=== PATIENT | female | born 2000 | race Caucasian/White ===

== ENCOUNTER 2019-05-08 10:55 | Outpatient (CLI) | payer MEDICAID | END 2019-05-08 20:10 | disposition home or self-care (01) | LOC: MUS 10:55 | PROVIDERS: ATTEND Obstetrics & Gynecology | DX: Z34.92 Encounter for supervision of normal pregnancy, unspecified, second trimester (principal); Z3A.25 25 weeks gestation of pregnancy | CPT/HCPCS: 76805; 90935 ==

== ENCOUNTER 2019-08-05 13:44 | Inpatient (IN) | payer MEDICAID ==
[~2019-08-05] VITALS: Ht 169 cm; Wt 95.3 kg
[2019-08-05] MEDS ORDERED: PROMETHAZINE 25 MG/ML VIAL IVP PRN (14:20)
[2019-08-05] MEDS ORDERED: METHYLERGONOVINE 0.2 MG/ML AMP IM PRN (14:20)
[2019-08-05] MEDS ORDERED: CARBOPROST 250 MCG/ML AMP IM PRN (14:20)
[2019-08-05] MEDS ORDERED: NALBUPHINE 10 MG/ML AMP IVP PRN (14:20)
[2019-08-05] MEDS ORDERED: MISOPROSTOL 25 MCG TAB ONE ×3 (15:27→20:08)
[2019-08-05 15:39] LABS: BASOPHILS % (AUTO) 0.2 % (0.0-2.0); EOSINOPHILS % (AUTO) 0.4 % (0.0-4.0); HEMATOCRIT 35.5 % (36-48); HEMOGLOBIN 11.8 g/dL (12.0-16.0); LYMPHOCYTES # (AUTO) 1.9 K/uL (2.5-16.5); LYMPHOCYTES % (AUTO) 19.3 % (20.5-51.1); MEAN CORPUSCULAR HEMOGLOBIN 31 pg (27-31); MEAN CORPUSCULAR HGB CONC 33 g/dL (33-37); MEAN CORPUSCULAR VOLUME 93.3 fL (80-94); MONOCYTES # (AUTO) 0.6 K/uL (0.8-1.0); MONOCYTES % (AUTO) 6.1 % (1.7-9.3); NEUTROPHILS # (AUTO) 7.4 K/uL (1.8-7.7); PLATELET COUNT (AUTO) 253 K/uL (140-450); RED CELL DISTRIBUTION WIDTH 13.4 % (11.6-13.7)
[2019-08-05 17:02] LABS: ALBUMIN 2.6 g/dL (3.4-5.0); ANION GAP 16.1 (8-16); CARBON DIOXIDE 21.4 mmol/L (21-32); CREATININE 0.4 mg/dL (0.6-1.3); POTASSIUM 3.5 mmol/L (3.5-5.1); TOTAL BILIRUBIN 0.2 mg/dL (0.0-1.0)
[2019-08-05] MEDS ORDERED: MISOPROSTOL 200 MCG TAB VG SCH (18:00)
[2019-08-05] MEDS: LACTATED RINGERS 1,000 ML IV SCH (23:10)
[2019-08-05 23:39] LABS: APPEARANCE,URINE SL CLOUDY (CLEAR); BILIRUBIN,URINE NEGATIVE (NEGATIVE); BLOOD, URINE NEGATIVE (NEGATIVE); COLOR,URINE YELLOW (YELLOW); LEUKOCYTE ESTERASE ,URINE TRACE (NEGATIVE); NITRITE, URINE NEGATIVE (NEGATIVE); UGLUCOSE NEGATIVE (NEGATIVE)
[2019-08-06] MEDS ORDERED: MISOPROSTOL 25 MCG TAB ONE (00:34)
[2019-08-06 00:57] LABS: RBC,URINE 0-5 /HPF (0-5); WBC,URINE 0-5 /HPF (0-5)
[2019-08-06] MEDS: LACTATED RINGERS 1,000 ML IV SCH ×2 (07:52→20:15)
[2019-08-06] MEDS ORDERED: OXYTOCIN 20 UNITS in LACTATED RINGERS 1,000 ML IV SCH (08:20)
[2019-08-06] MEDS ORDERED: OXYTOCIN 20 UNITS/LR PREMIX 1,000 ML IV ONE (08:29)
--- NOTE | 2019-08-06 08:48 | NUR ---
PATIENT HAS BEEN SCREENED AND CATEGORIZED LOW NUTRITION RISK. PATIENT WILL BE SEEN WITHIN 7 DAYS OF ADMISSION. 08/12/[address]
[2019-08-06] MEDS ORDERED: BUPIVACAINE 0.125%/NS PREMIX 250 ML ONE (15:19)
[2019-08-06] MEDS ORDERED: MEASLES, MUMPS, AND RUBELLA 1 VIAL SQVAC PRN (23:45)
[2019-08-06] MEDS ORDERED: IBUPROFEN 800 MG TAB PO PRN (23:45)
[2019-08-06] MEDS ORDERED: METHYLERGONOVINE 0.2 MG/ML AMP IM PRN (23:45)
[2019-08-06] MEDS ORDERED: OXYTOCIN 10 UNITS/ML VIAL IM PRN (23:45)
[2019-08-06] MEDS ORDERED: BENZOCAINE/MENTHOL 20%-0.5% 60 GM CAN TP PRN (23:45)
[2019-08-06] MEDS ORDERED: METHYLERGONOVINE 0.2 MG TAB PO PRN (23:45)
[2019-08-07 09:11] LABS: HEMATOCRIT 38.8 % (36-48); HEMOGLOBIN 12.8 g/dL (12.0-16.0)
[2019-08-07] MEDS ORDERED: DOCUSATE SOD/SENNA 50/8.6 MG 1 TAB PO SCH (21:00)
[2019-08-07] MEDS ORDERED: INFLUENZA VACCINE QUAD 0.5 ML SYR IMVAC PRN (21:45)
== END 2019-08-08 13:25 | disposition home or self-care (01) | DRG 560 ==
LOC: MLD 13:44 → MFCC 08-07 02:00
PROVIDERS: ADMIT Obstetrics & Gynecology; ATTEND Obstetrics & Gynecology
PROC: 10E0XZZ Delivery of Products of Conception, External Approach (ICD-10-PCS; principal; 2019-08-06)
PROC: 3E0R3BZ Introduction of Anesthetic Agent into Spinal Canal, Percutaneous Approach (ICD-10-PCS; 2019-08-06)
PROC: 00HU33Z Insertion of Infusion Device into Spinal Canal, Percutaneous Approach (ICD-10-PCS; 2019-08-06)
PROC: 10907ZC Drainage of Amniotic Fluid, Therapeutic from Products of Conception, Via Natural or Artificial Opening (ICD-10-PCS; 2019-08-06)
PROC: 3E0P7VZ Introduction of Hormone into Female Reproductive, Via Natural or Artificial Opening (ICD-10-PCS; 2019-08-06)
PROC: 0UQGXZZ Repair Vagina, External Approach (ICD-10-PCS; 2019-08-06)
PROC: 3E0234Z Introduction of Serum, Toxoid and Vaccine into Muscle, Percutaneous Approach (ICD-10-PCS; 2019-08-06)
DX: O41.03X0 Oligohydramnios, third trimester, not applicable or unspecified (principal); E66.9 Obesity, unspecified; O99.214 Obesity complicating childbirth; O36.5930 Maternal care for other known or suspected poor fetal growth, third trimester, not applicable or unspecified; Z37.0 Single live birth; Z3A.37 37 weeks gestation of pregnancy; O71.4 Obstetric high vaginal laceration alone; Z23 Encounter for immunization
CPT/HCPCS: 36415; 59409; 80053; 81001; 85018; 85025; 86592; 86886; 86900; 86901; 87086; 90715; J2590; J3490; J7120